=== PATIENT | female | born 1990 | race Two or more races ===

== ENCOUNTER 2024-03-25 10:21 | Inpatient (IN) | payer MEDICAID, SELFPAY ==
[2024-03-25] VITALS (12 sets, daily range): BP systolic 81–125; BP diastolic 58–82; PULSE 68–95; RESP 17–20; TEMP 36.7–37.1; O2SAT 97–100; BMI 32.9
[2024-03-25 11:21] LABS: Basophils % (Auto) 0 % (0-2.5); Eosinophils # (Auto) 0.1 Thou/mm3 (0.0-0.5); Eosinophils % (Auto) 1 % (0-10); Hematocrit 35.8 % (36.0-46.0); Hemoglobin 12.4 g/dL (12.0-16.0); Immature Granulocytes % (Auto) 1 % (0-0); Immature Granulocytes Auto 0.04 Thou/mm3 (0.00-0.00); Lymphocytes # (Auto) 2.2 Thou/mm3 (1.0-4.8); Lymphocytes % (Auto) 25 % (10-50); Mean Corpuscular HGB Conc 34.6 g/dl (31.0-37.0); Mean Corpuscular Hemoglobin 29.1 pg (25.0-35.0); Mean Corpuscular Volume 84 fL (80-100); Monocytes # (Auto) 0.4 Thou/mm3 (0.0-0.8); Monocytes % (Auto) 4 % (0-12); Neutrophils % (Auto) 69 % (37-80); Nucleated Red Blood Cell % 0 /100 WBC (0); Platelet Count 157 Thou/mm3 (140-440); RDW Standard Deviation 40.9 fL (36.4-46.3); Red Blood Count 4.26 Miln/mm3 (4.00-5.20); White Blood Count 8.8 Thou/mm3 (3.6-11.0)
[2024-03-25] MEDS: ceFAZolin/D5W 2 GM IV 2 GM/100 ML BAG IV (11:46)
[2024-03-25] MEDS: CITRIC ACID/SODIUM CITR 15 ML UDC (BICITRA) 30 ML PO (11:47)
[2024-03-25] MEDS: FAMOTIDINE INJ 10 MG/ML VIAL 2 ML 20 MG IV (11:48)
[2024-03-25 11:58] LABS: Syphilis Nonreactive (Nonreactive)
--- NOTE | 2024-03-25 12:18 | PD.LDHP ---
Documentation for date of: 03/25/24 OB Labor/Induct. HPI History of Present Illness : 3 Term pregnancies: 2 pregnancies: 0 Living children: 2 History of Abortions: Spontaneous and Elective: 0 History of sections: Yes History of : No History of present illness: 34-year-old 4 para 3-0-0-3 at 39 weeks and 0 days admitted for repeat low-transverse . Patient denies any contractions, leaking, bleeding previous x 2 History of Present Dating criteria: LMP confirmed by 1st trimester US Adequate Care: Yes Past Medical History Surgical History SURGICAL: Positive Section Meds Home Medications and Allergies Home Medications ?Medication ?Instructions ?Recorded ?Confirmed ?Type vit no.95-ferrous 1 tab PO DAILY 08/12/18 09/15/18 History fumarate 28 mg-folic acid 800 mcg tablet () Allergies Allergy/AdvReac Type Severity Reaction Status Date / Time No Known Allergies Allergy Verified 12/21/23 18:09 OB Exam Physical Exam Vital signs: Pulse BP 87 112/73 03/25/24 11:55 03/25/24 11:55 Constitutional Constitutional: no acute distress Routine HEENT Exam Head: Present normocephalic and atraumatic Eye: Present EOMI and PERRL ENT: Present mucous membranes moist Routine Neck Exam Neck: Present supple and trachea midline Routine Cardiovascular Exam Cardiovascular: Present RRR Routine Abdominal Exam Abdominal: Present soft and normoactive bowel sounds Detailed Labor and Delivery Exam Dilation (cm): Closed Comments: Category 1 heart tone No contractions Routine Extremities Exam Extremities: Present full ROM Routine Skin Exam Skin: Present intact, dry and warm Routine Neurological Exam Neurological: Present alert, oriented X3 and CN II-XII intact Routine Psychiatric Exam Psychiatric: Present normal affect and normal thought process OB Results Labs 03/25/24 11:05 Labs: Short CBC 03/25/24 Range/Units 11:05 WBC 8.8 (3.6-11.0) Thou/mm3 Hgb 12.4 (12.0-16.0) g/dL Hct 35.8 L (36.0-46.0) % Plt Count 157 (140-440) Thou/mm3 Impressions Impression: 34-year-old 4 para 3-0-0-3 at 39 weeks and 0 days admitted for repeat low-transverse Signed sterilization consent agreed to go with it today Hemoglobin 12.4 Anatomy scan normal placenta anterior no signs of PAS on anatomy scan OB Assessment & Plan Additional Plan Additional Plan Comment: Repeat low-transverse DVT prophylaxis Antibiotic prophylaxis
[2024-03-25] MEDS: OXYTOCIN in NS 20 units 20 UNIT/1,000 ML BAG 125 UNIT IV ×2 (14:58→22:15)
[2024-03-25] MEDS: KETOROLAC INJ 30 MG/ML VIAL IVP (15:26)
--- NOTE | 2024-03-25 17:10 | ESOP_ITS ---
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 Identity was confirmed by double identifiers and she was placed on the operating table.The abdomen and perineum were prepped in the usual sterile fashion and a Benitez catheter was placed to continuous drainage.? Sterile drapes were applied.??A Pfannenstiel skin incision was made with a scalpel and carried to the subcutaneous fat up to the rectus fascia.? The rectus fascia was incised on either side of the midline and the incisions were extended bilaterally.? The fascia was gently dissected off the ventral surface of the rectus muscle both superiorly and inferiorly.. Carefully a peritioneal window craeted and after ruling out adhesion of bowel and bladder it was extended . Hysterotomy incision done on rupture of membranes gross bloody amniotic fluid was seen along with about 500 cc of blood clot. The baby was cephalic position delivered via vertex umbilical cord , was doubly clamped, divided and the infant was handed over to the waiting team.? placenta delivered by controlled cord traction . The interior of the uterus was now thorougly cleaned of all blood and debris and membranes.? The? hysterotomy was closed using 0 vicryl suture in double layers. Once the repair was completed the hysterotomy was inspected, was noted to be adequately hemostatic . Muscle oozing stopped by bovie. The rectus fascia was repaired usin Vicryl 0 in a running fashion.?B/L salpingectomy performed using enseal device. The subcutaneous layer was now, approximated with 3-0 vicryl in double layers.? All bleeding points were cauterized using the Bovie.?The skin was closed using 4-0 Monocryl in a subcuticular fashion.? The skin was cleaned and a sterile dressing was applied. The patient was now un draped, the abdomen and back were thoroughly cleaned and she was now transferred to the recovery room in a stable Surgical staff Operation Date: 03/25/24 12:45 Case Staff Anesthesiologist: Bruno Alcazar RN First Assistant: Becka Jeffery RNgaming pit boss: Emile Isidro Diagnosis Problem List Completed Was Problem List Reviewed/Reconciled?: Yes
[2024-03-25] MEDS: HYDROcodone/APAP 5/325 TABLET 2 TAB PO (17:11)
--- NOTE | 2024-03-25 17:16 | PD.LDDELS ---
Data ([facility]) Data Hx Section: Yes : 4 Para: 3 Term: 3 : 0 : 0 Delivery Data ([facility]) Labor Data ROM Date: 03/25/24 ROM Time: 12:40 Rupture Type: AROM Amniotic Fluid: Clear Delivery Data Labor Onset Stage 1 Date: 03/25/24 Labor Onset Stage 1 Time: 12:40 Labor Onset Stage 2 Date: 03/25/24 Labor Onset Stage 2 Time: 12:40 Delivery Date: 03/25/24 Delivery Time: 12:41 Gestational age (weeks): 39 Placenta Delivery Date: 03/25/24 Placenta Delivery Time: 12:42 Delivered by: Saad Rai Delivery nurse: Randi Morales Other staff at delivery: Nurse Other staff at delivery: Bariatric Physician Other staff at delivery: Nurse Other staff at delivery: Geeta Benson Other staff at delivery: Shelley Perdomo Other staff at delivery: juan Other staff at delivery: rebrie Delivery Method Delivery: Delivery Type: Repeat Anesthesia Type Primary Anesthesia: Spinal EBL Estimated blood loss (ml): 400 [place] Data ([facility]) [place] Data Infant Gender: Male Infant Weight Grams: 3475 1 Minute Total: 8 5 Minute Total: 9
[2024-03-25 18:31] LABS: Basophils % (Auto) 0 % (0-2.5); Eosinophils % (Auto) 0 % (0-10); Hemoglobin 11.9 g/dL (12.0-16.0); Immature Granulocytes % (Auto) 1 % (0-0); Immature Granulocytes Auto 0.07 Thou/mm3 (0.00-0.00); Lymphocytes # (Auto) 1.1 Thou/mm3 (1.0-4.8); Lymphocytes % (Auto) 7 % (10-50); Mean Corpuscular Hemoglobin 29.5 pg (25.0-35.0); Mean Corpuscular Volume 84 fL (80-100); Monocytes # (Auto) 0.2 Thou/mm3 (0.0-0.8); Monocytes % (Auto) 1 % (0-12); Neutrophils # (Auto) 14.1 Thou/mm3 (1.8-7.7); Neutrophils % (Auto) 91 % (37-80); Nucleated Red Blood Cell % 0 /100 WBC (0); Platelet Count 157 Thou/mm3 (140-440); RDW Standard Deviation 41.8 fL (36.4-46.3); Red Blood Count 4.03 Miln/mm3 (4.00-5.20); White Blood Count 15.5 Thou/mm3 (3.6-11.0)
[2024-03-25] MEDS: IBUPROFEN TAB 400 MG TABLET 800 MG PO (22:14)
[2024-03-26 00:52] VITALS: BP 104/63; PULSE 68; RESP 18; TEMP 36.4; O2SAT 98
[2024-03-26] MEDS: HYDROcodone/APAP 5/325 TABLET 2 TAB PO ×2 (00:56→13:29)
[2024-03-26 04:30] VITALS: BP 104/64; PULSE 58; RESP 18; TEMP 36.6; O2SAT 98
[2024-03-26] MEDS: IBUPROFEN TAB 400 MG TABLET 800 MG PO ×2 (08:16→20:38)
[2024-03-26 08:43] VITALS: BP 91/59; PULSE 74; RESP 17; TEMP 36.6; O2SAT 97
--- NOTE | 2024-03-26 09:17 | ESPR_ITS ---
Subjective Subjective Interval history: POD 1 from RLTCS and BS Patient doing well no issues . Pain well controlled, bleeding within normal limits. Passing gas, voiding without issues Exam Vital Signs Temp Pulse Resp BP Pulse Ox O2 Del Method 97.9 F 74 17 91/59 L 97 Room Air 03/26/24 08:43 03/26/24 08:43 03/26/24 08:43 03/26/24 08:43 03/26/24 08:43 03/26/24 08:43 Narrative Exam General: NAD RESP: normal work of breathing Abdomen: soft, gravid, non-tender, no rebound or guarding, bandage in place Extremities: no pain with palpation of calves and no unilateral swelling Objective Labs 03/25/24 18:13 Labs: Laboratory Results - last 24 hr 03/25/24 03/25/24 11:05 18:13 WBC 8.8 15.5 H D RBC 4.26 4.03 Hgb 12.4 11.9 L Hct 35.8 L 34.0 L MCV 84 84 MCH 29.1 29.5 MCHC 34.6 35.0 RDW Std Deviation 40.9 41.8 Plt Count 157 157 Neut % (Auto) 69 91 H Lymph % (Auto) 25 7 L [place] % (Auto) 4 1 Eos % (Auto) 1 0 Baso % (Auto) 0 0 Neut # (Auto) 6.0 14.1 H Lymph # (Auto) 2.2 1.1 [place] # (Auto) 0.4 0.2 Eos # (Auto) 0.1 0.0 Baso # (Auto) 0.0 0.0 Immature Gran # (Auto) 0.04 H 0.07 H Absolute Nucleated RBC 0.00 0.00 Immature Gran % 1 H 1 H Nucleated RBC % 0 0 Syphilis Serology Nonreactive Blood Type O Positive Antibody Screen NEGATIVE Blood Bank Wristband ID Yes Assessment & Plan Plan Comment Plan Comment: -Continue routine /post-op care -HDS Hgb 12.4 -> 11.9 (postop), VSS wnl -Regular diet -Pain control with motrin and norco -Encourage ambulation and use of IS Time Spent With Patient Time: Total time spent is greater than 50% in coordination of care (as documented) at patient's floor/unit and/or counseling patient:
[2024-03-26 12:30] VITALS: BP 98/63; PULSE 82; RESP 20; TEMP 36.8; O2SAT 96
[2024-03-26 16:06] VITALS: BP 94/60; PULSE 68; RESP 18; TEMP 36.8; O2SAT 99
[2024-03-26 21:00] VITALS: BP 103/65; PULSE 70; RESP 18; TEMP 37.1; O2SAT 98
[2024-03-27] MEDS: HYDROcodone/APAP 5/325 TABLET 2 TAB PO ×2 (02:34→09:35)
[2024-03-27 05:20] VITALS: BP 90/58; PULSE 70; RESP 16; TEMP 36.7; O2SAT 98
--- NOTE | 2024-03-27 06:58 | PD.LDPPPRG ---
Subjective Subjective Interval history: POD 2 from RLTCS after labor and SROM Patient doing well no issues . Baby at beside. . Pain well controlled, bleeding within normal limits. Voiding without issues. No lightheadedness when walking. Passing gas. Exam Vital Signs Temp Pulse Resp BP Pulse Ox O2 Del Method 98.0 F 70 16 90/58 L 98 Room Air 03/27/24 05:20 03/27/24 05:20 03/27/24 05:20 03/27/24 05:20 03/27/24 05:20 03/27/24 05:20 Narrative Exam General: NAD RESP: normal work of breathing Abdomen: soft, gravid, non-tender, no rebound or guarding, Fundus firm and at approximate levl of the umbilicus Incision: clean/dry Extremities: no pain with palpation of calves and no unilateral swelling Objective Labs 03/25/24 18:13 Assessment & Plan Problem List (1) Status post repeat low transverse section: Status: Acute Assessment Comment Assessment comment: 34 yo now s/p RLTCS and BS for prior LTCS x2 at 39+0. Doing well meeting all postoperative milestones. Plan Comment Plan Comment: -Meeting all milestones -HDS Hgb 10.9 -> 700cc EBL -> 8.1 -Regular diet -Pain control with motrin and norco -Ferrous sulfate for anemia -Encourage ambulation and use of IS - Ready for discharge later today Time Spent With Patient Time: Total time spent is greater than 50% in coordination of care (as documented) at patient's floor/unit and/or counseling patient:
--- NOTE | 2024-03-27 07:00 | PD.GYNDS ---
Planned Discharge Date 03/27/24 DS: Providers Provider Date of admission: 03/25/24 10:21 Primary care physician: Physician No Primary/Family Admitting Provider: Saad Rai MD Attending Provider on Admission: Sherice Hassan MD Consults: 03/25/24 12:23 Referral Routine Comment: Attending Provider on DC: Sherice Hassan MD Discharging Provider: Sherice Hassan MD DS: Diagnosis Discharge Diagnosis (1) Status post repeat low transverse section: Status: Acute Problem List Completed Was Problem List Reviewed/Reconciled?: Yes Hospital Course Hospital Course Hospital course: 34-year-old 4 para 3-0-0-3 at 39 weeks and 0 days admitted for repeat low-transverse . Patient denies any contractions, leaking, bleeding previous x 2 Course: 34 yo now admitted at 39+0 for RLTCS and BS for prior LTCS x2. She underwent an uncomplicated RLTCS and BS with no complication and delivered a male apgars 8/9 weighing 3475g. EBL 400cc. Patient progressed appropriately during the postoperative period and met all milestones. She was discharged home on POD2 in stable condition. 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 Vital Signs Temp Pulse Resp BP Pulse Ox O2 Del Method 98.0 F 70 16 90/58 L 98 Room Air 03/27/24 05:20 03/27/24 05:20 03/27/24 05:20 03/27/24 05:20 03/27/24 05:20 03/27/24 05:20 Narrative Exam General: NAD RESP: normal work of breathing Abdomen: soft, gravid, non-tender, no rebound or guarding, Fundus firm and at approximate levl of the umbilicus Incision: clean/dry Extremities: no pain with palpation of calves and no unilateral swelling Discharge Plan Plan Patient Disposition: HOME (Self Care) Prescriptions/Referrals Prescriptions/Med Rec: New hydrocodone-acetaminophen 5-325 mg Tablet 2 tab PO Q6HR MDD 4 tabs PRN (Reason: Patient rated pain 9 to 10) Qty: 10 0RF ibuprofen 400 mg Tablet 800 mg PO Q8H PRN (Reason: See Comments) Qty: 20 0RF Accrufer 30 mg capsule 30 mg PO DAILY Qty: 30 0RF docusate sodium [Colace] 100 mg capsule 100 mg PO QDAY Qty: 30 0RF No Action hydrocodone-acetaminophen 5-325 mg Tablet 2 tab PO Q6HR MDD 6 PRN (Reason: Patient rated pain 9 to 10) Qty: 30 0RF ibuprofen 400 mg Tablet 800 mg PO Q8HR PRN (Reason: Pain Scale 4-6 (Moderate) Qty: 30 0RF PNV cmb#95-ferrous fumarate-FA [] 28 mg iron- 800 mcg Tablet 1 tab PO DAILY Referrals: No Primary/Family,Physician [Primary Care Provider] - Patient/Caregiver Discharge Instructions Discharge Activity: activity as tolerated Education Materials: C Section Dc Print Language: Kazakh Stand Alone Forms: Bre Award Info., Patient Portal Info Letter Discharge Order Discharge Orders: Discharge (Routine); Ordered 03/27/24 Ordered By: Sherice Hassan
[2024-03-27 08:00] VITALS: BP 99/62; PULSE 74; RESP 18; TEMP 37; O2SAT 98
[2024-03-27] MEDS: DIPHTH,PERTUSS(ACELL),TET VAC 0.5 ML VIAL IMi (09:36)
== END 2024-03-27 12:20 | disposition home or self-care (01) | DRG 539 ==
LOC: S4SX 11:23 → S4NX 12:25
PROVIDERS: Admitting Provider Student in an Organized Health Care Education/Training Program; Visit Provider Obstetrics & Gynecology
PROC: 0UL70ZZ Occlusion of Bilateral Fallopian Tubes, Open Approach (ICD-10-PCS; CPT 59514; principal; 2024-03-25 12:30)
DX: O34.211 Maternal care for low transverse scar from previous cesarean delivery (principal); Z37.0 Single live birth; Z3A.39 39 weeks gestation of pregnancy; Z23 Encounter for immunization
CPT/HCPCS: 36415; 85025; 86780; 86850; 86900; 86901; 90715; 94762; A4649; J0689; J1100; J1885; J2274; J2371; J2405; J2590; J3010; J3490; A9270; J2270